=== PATIENT | male | born 1970 | race Caucasian/White ===

== ENCOUNTER 2016-03-25 18:41 | Emergency (ER) | payer OTHER | END 2016-03-25 21:07 | disposition home or self-care (01) | LOC: D.ER 18:41 | DX: S16.1XXA Strain of muscle, fascia and tendon at neck level, initial encounter (principal); W13.2XXA Fall from, out of or through roof, initial encounter; Y93.89 Activity, other specified; Y92.018 Other place in single-family (private) house as the place of occurrence of the external cause; S09.90XA Unspecified injury of head, initial encounter; T14.8 Other injury of unspecified body region; F17.200 Nicotine dependence, unspecified, uncomplicated ==

== ENCOUNTER 2017-11-28 12:30 | Emergency (ER) | payer OTHER ==
[~2017-11-28] VITALS: Ht 182.9 cm; Wt 85.5 kg
[2017-11-28 12:38] VITALS: Ht 182.9 cm; Wt 85.5 kg
[2017-11-28 13:08] LABS: BASOPHILS 0.2 % (0-2); EOSINOPHILS 0.1 % (0-7); HEMATOCRIT 48.4 % (42.0-54.0); HEMOGLOBIN 17.8 g/dL (13.5-17.5); IMMATURE GRANULOCYTES 0.2 % (0-5); LYMPHOCYTES 24.2 % (15-50); MCH 31.8 pg (26.0-34.0); MCHC 36.8 g/dL (31.0-37.0); MCV 86.6 fL (80.0-100.0); MEAN PLATELET VOLUME 9.4 fL (7.4-10.4); NEUTROPHILS 66.3 % (40-80); PLATELET COUNT 203 10x3/uL (130-400); RBC 5.59 10x6/uL (4.20-6.10); RDW 13.1 % (11.5-14.5); WBC 10.5 10x3/uL (4.8-10.8)
[2017-11-28 13:11] LABS: ALBUMIN 4.4 g/dL (3.4-5.0); ALKALINE PHOSPHATASE 51 U/L (46-116); ALT (SGPT) 157 U/L (10-68); BILIRUBIN - TOTAL 0.68 mg/dL (0.2-1.3); CALC OSMOLALITY 261 mosm/kg (275-300); CALCIUM 8.5 mg/dL (8.5-10.1); CARBON DIOXIDE 20.3 mmol/L (21.0-32.0); CHLORIDE - SERUM 94 mmol/L (98-107); GLUCOSE 99 mg/dL (74-106); POTASSIUM - SERUM 4.1 mmol/L (3.5-5.1); PROTEIN - SERUM 8.1 g/dL (6.4-8.2); SODIUM 132 mmol/L (136-145); UREA NITROGEN 3 mg/dL (7-18); eGFR NON AFRICAN AMERICAN 85 mL/min (90-120)
[2017-11-28 14:58] LABS: APPEARANCE CLEAR (CLEAR); COLOR STRAW (YELLOW)
[2017-11-28 14:59] LABS: BILIRUBIN NEGATIVE (NEGATIVE); GLUCOSE NEGATIVE (NEGATIVE); KETONE SMALL mg/dL (NEGATIVE); NITRITE NEGATIVE (NEGATIVE); PROTEIN NEGATIVE (NEGATIVE); UROBILINOGEN NORMAL (NORMAL)
[2017-11-28 15:00] LABS: RED CELLS - URINE 0-5 /hpf (0-5); WHITE CELLS - URINE OCC /hpf (0-5)
[2017-11-28 15:01] LABS: UDS - AMPHET NEGATIVE QUAL (NEGATIVE); UDS - BARB NEGATIVE QUAL (NEGATIVE); UDS - BENZO NEGATIVE QUAL (NEGATIVE); UDS - COCAINE NEGATIVE QUAL (NEGATIVE); UDS - OPIATE NEGATIVE QUAL (NEGATIVE); UDS - PCP NEGATIVE QUAL (NEGATIVE); UDS - THC NEGATIVE QUAL (NEGATIVE)
[2017-11-28 15:22] VITALS: BP 149/81
== END 2017-11-28 15:23 | disposition home or self-care (01) ==
LOC: D.ER 12:30
PROVIDERS: Family Medicine
DX: F10.10 Alcohol abuse, uncomplicated (principal); F17.200 Nicotine dependence, unspecified, uncomplicated